=== PATIENT | male | born 1975 | race Hispanic/Latino ===

== ENCOUNTER 2021-08-26 10:30 | Emergency (ER) | payer SELFPAY ==
[2021-08-26] MEDS ORDERED: Lidocaine 1% PF 5 ML VIAL ONE (12:14)
[2021-08-26] MEDS ORDERED: Boostrix 0.5 ML (Tdap) VIAL ONE (12:19)
[2021-08-26] MEDS ORDERED: ceFAZolin (BATCH) 2 GM/100 ML BAG ONE (12:20)
[2021-08-26] MEDS ORDERED: Bacitracin 1 PK TOP SCH (14:00)
[2021-08-26] MEDS ORDERED: HyperTET 250 UNITS/ML 1 ML SYRINGE IM ONE (14:00)
== END 2021-08-26 14:28 | disposition home or self-care (01) ==
LOC: ERS 10:30
DX: S62.636A Displaced fracture of distal phalanx of right little finger, initial encounter for closed fracture (principal); S61.216A Laceration without foreign body of right little finger without damage to nail, initial encounter; I10 Essential (primary) hypertension; W23.0XXA Caught, crushed, jammed, or pinched between moving objects, initial encounter; Z23 Encounter for immunization
CPT/HCPCS: 12002; 90471; 90715; 96365; 96372; J0690; J1670

== ENCOUNTER 2021-09-06 16:38 | Outpatient (CLI) | payer SELFPAY ==
[2021-09-06 17:31] LABS: #Eosinphils 0.3 10x3/uL (0.0-0.5); #Monocytes 0.9 10x3/uL (0.0-1.1); #Neutrophils 4.3 10x3/uL (1.5-8.4); %Basophils 0.5 % (0.0-2.0); %Eosinophils 3.7 % (0.0-6.0); %Lymphocytes 29.6 % (18.0-47.0); %Monocytes 11.7 % (0.0-10.0); %Neutrophils 54.4 % (40.0-75.0); Hemoglobin 14.2 g/dL (13.5-17.5); Mean Corpuscular HGB CONC 32.4 g/dL (32.0-36.0); Mean Corpuscular Hemoglobin 27.4 pg (27.0-33.0); Mean Corpuscular Volume 84.6 fl (81.2-95.1); Platelet Count 153 10x3/uL (150-450); RBC Distribution Width 14.1 % (11.5-14.5); Red Blood Cell (RBC) Count 5.18 10x6/uL (4.32-5.72); White Blood Cell (WBC) Count 7.8 10x3/uL (3.5-10.5)
[2021-09-06 17:53] LABS: Anion Gap 14 mmol/L (10-20); BUN (Urea Nitrogen) 17 mg/dL (8.9-20.6); Calc. Creatinine Clearance 0 mL/min (70-130); Calcium 8.8 mg/dL (7.8-10.44); Carbon Dioxide 22 mmol/L (22-29); Chloride 109 mmol/L (98-107); Glucose 160 mg/dL (70-105); Sodium 141 mmol/L (136-145)
[2021-09-07 00:54] LABS: SARS-CoV-2 PCR by NAA Not Detected (NotDetected)
== END 2021-09-06 16:39 | disposition home or self-care (01) ==
LOC: LABBT 16:38
PROVIDERS: ATTEND Orthopaedic Surgery Hand Surgery
DX: Z01.818 Encounter for other preprocedural examination (principal); S62.636B Displaced fracture of distal phalanx of right little finger, initial encounter for open fracture; S67.10XA Crushing injury of unspecified finger(s), initial encounter; S64.40XA Injury of digital nerve of unspecified finger, initial encounter; Z20.822 Contact with and (suspected) exposure to COVID-19
CPT/HCPCS: 80048; 85025; 93005; 93010; U0003; U0005

== ENCOUNTER 2021-09-07 10:08 | Day surgery (SDC) | payer OTHER ==
[2021-09-06 15:27] VITALS: BMI 38.7
[2021-09-07] MEDS ORDERED: Bacitracin Zinc Ointment 30 gm TUBE ONE (14:02)
[2021-09-07] MEDS ORDERED: Neomycin-Polymyxin 1 ML AMP ONE (14:02)
[2021-09-07] MEDS ORDERED: Bupivacaine PF 0.5% 30 ML VIAL ONE (14:02)
[2021-09-07] MEDS ORDERED: ceFAZolin (BATCH) 2 GM/100 ML BAG ONE (14:03)
[2021-09-07] MEDS ORDERED: fentaNYL Citrate/PF 100 MCG/2 ML SYRINGE ONE (14:04)
[2021-09-07] MEDS ORDERED: Midazolam HCl 2 mg/2 ml Vial ONE (14:05)
[2021-09-07] MEDS ORDERED: Ondansetron PF 4 MG/2 ML Vial ONE (14:09)
[2021-09-07] MEDS ORDERED: Lidocaine 1% PF 5 ML VIAL ONE (14:09)
[2021-09-07] MEDS ORDERED: Dexamethasone 20 MG/5 ML VIAL ONE (14:09)
[2021-09-07] MEDS ORDERED: PROPOFOL 200 MG/20 ML VIAL ONE (14:09)
[2021-09-07] MEDS ORDERED: Ketorolac Tromethamine 30 MG/ML VIAL ONE (16:21)
== END 2021-09-07 17:29 | disposition home or self-care (01) ==
LOC: SDC 10:08
PROVIDERS: ATTEND Orthopaedic Surgery Hand Surgery
PROC: 0PST04Z Reposition Right Finger Phalanx with Internal Fixation Device, Open Approach (ICD-10-PCS; principal; 2021-09-07)
PROC: 01Q40ZZ Repair Ulnar Nerve, Open Approach (ICD-10-PCS; principal; 2021-09-07)
PROC: 0HQQXZZ Repair Finger Nail, External Approach (ICD-10-PCS; principal; 2021-09-07)
DX: S67.196A Crushing injury of right little finger, initial encounter (principal); S62.636B Displaced fracture of distal phalanx of right little finger, initial encounter for open fracture; S64.496A Injury of digital nerve of right little finger, initial encounter; I10 Essential (primary) hypertension; W23.0XXA Caught, crushed, jammed, or pinched between moving objects, initial encounter; Y99.0 Civilian activity done for income or pay
CPT/HCPCS: 76000; J0690; J1100; J1885; J2250; J2405; J2704; S0020